=== PATIENT | female | born 1990 | race Two or more races ===

== ENCOUNTER 2023-12-17 09:52 | Inpatient (IN) | payer OTHER ==
[2023-12-17] MEDS ORDERED: ONDANSETRON 4 MG/2 ML VIAL IVP PRN ×2 (10:31→22:57)
[2023-12-17] MEDS ORDERED: METHYLERGONOVINE 0.2 MG/ML VIAL IM PRN (10:31)
[2023-12-17] MEDS ORDERED: TRANEXAMIC ACID IN NACL 1,000 MG/100 ML BAG IV PRN (10:31)
[2023-12-17] MEDS ORDERED: CARBOPROST TROMETHAMINE 250 MCG/ML VIAL IM PRN (10:31)
[2023-12-17] MEDS ORDERED: lidocaine 1% 20 ML MDV ID PRN (10:31)
[2023-12-17] MEDS ORDERED: OXYTOCIN/SODIUM CHLORIDE 500 ML IV PRN (10:31)
[2023-12-17] MEDS ORDERED: OXYTOCIN 10 UNIT/ML VIAL IM PRN (10:31)
[2023-12-17] MEDS ORDERED: miSOPROStoL 200 MCG TABLET BC PRN (10:31)
[2023-12-17] MEDS ORDERED: SODIUM CHLORIDE FLUSH 0.9% 10 ML SYRINGE IVP PRN (10:31)
--- NOTE | 2023-12-17 10:40 | HISTORY & PHYSICAL EXAMINATION ---
Admit History - : 3 Parity: 1 : 1 Care: positive: [facility] Risk/History: positive: None Complications This : positive: None Smoking Status: Never smoker - Mother's Labs Mother's Blood Type: positive: O Mother's RH: positive: Negative GBS: positive: Group B Step Negative Rubella Status: positive: Immune - HPI Diagnosis/Indication for NST: Other - NST Procedure NST reactive. 130's, moderate variability positive accelerations, no decelerations Contractions palpate mild occasionally. soft resting tone. Meds/Allgy - Home Medications Home Medications: Ambulatory Orders Medication Instructions Recorded Confirmed No Known Home Medications 03/14/15 03/14/15 - Allergies Allergies/Adverse Reactions: Allergies Allergy/AdvReac Type Severity Reaction Status Date / Time No Known Drug Allergies Allergy Verified 03/14/15 18:41 Review of Systems - Constitutional Constitutional: denies: Fatigue, Fever, Chills - Eyes Eyes: denies: Blurred vision, Spots in vision, Dipolpia - Cardiovascular Cariovascular: denies: Palpitations, Chest pain, Edema - Respiratory Respiratory: denies: Cough, Wheezing, SOB at rest - Gastrointestinal Gastrointestinal: denies: Constipation, Diarrhea, Nausea, Vomiting - Genitourinary Genitourinary: denies: Dysuria, Frequency - Integumentary Integumentary: denies: Rash, Pruritis - Neurological Neurological: denies: Headache - All Other Systems All Other Systems: reports: Reviewed and negative Physical - Abdominal Exam Contraction Frequency (min/apart): occasional Contraction Intensity: positive: Mild Uterine Resting Tone: positive: Soft - Monitoring Heart Rate Baseline: 130s Strip Review: positive: Category I - Presentation Presentation: positive: Vertex - Vaginal Exam Membranes: positive: Membranes intact Dilation (in cm): 1-2 Effacement (%): 50 Station: positive: -3 Cervical Position: positive: Posterior - Speculum Exam Speculum Exam Performed: positive: No Plan for Labor - Plan For Labor I expect patient to be DC'd or transferred within 96 hours.: Yes Plan for Labor: Connor redd a 33 yo @39+5 presents to L&D for scheduled elective induction of labor. Upon arrival cervix was 1-2cm/50%/-3, soft, posterior, vertex. FHR category I. Supported by and Mother. Will be admitted for active management. Desires early epidural for pain management. She has been a patient of [facility] for the duration of her which has remained uncomplicated. Dating criteria: LMP: 03/14/2023 TARIK by initial us: 12/20/2023 TARIK by LMP: 12/19/2023 Serial exams agree. OB history: G1: TAB G2: 07/09/2021 NSVB 40 weeks, epidural, 6# 8oz female G3: current Allergies: NKDA Medical History: No significant history Surgical: Leep 2017, Liposuction 2019, airsculpt 2021 Social History: Never smoker, no EDOH, IVDU Course: O negative, antibody negative, rubella immune, hep B negative, GBS negative. Rhogam given 10/24/2023, Tdap 09/26/2020. care initiated @ 6+5 weeks gestation. 22 week anatomy scan: Estimated weight and percentile: 515 g, 29th percentile Normal anatomy. SLIUP with appropriate growth.] PE: Heart regular rate and rhythm lungs CTAB. Abdomen gravid, soft, non-tender. EFW: 3300g. Bilateral LE, trace edema. Mood good. Assessment: #1. 33 yo @33+5 weeks gestation by LMP consistent with 6 week us #2. Elective IOL #3. FHR category I #4. GBS negative #5. RH negative. Plan: #1. [facility] #2. 50mcg BC misoprostol q 4 hours for preinduction cervical ripening. #3. Continuous monitoring. #4. Jacuzzi tub prn. Nitrous oxide prn. #5. Epidural per maternal request #6. Anticipate .
[2023-12-17 11:16] LABS: BASOPHILS % (AUTO) 0.5 %; EOSINOPHILS # (AUTO) 0.1 10^3/uL (0.0-0.7); EOSINOPHILS % (AUTO) 0.7 %; HCT - HEMATOCRIT 34.8 % (37.0-47.0); HGB - HEMOGLOBIN 11.4 g/dL (12.0-16.0); LYMPHOCYTES # (AUTO) 2.6 10^3/uL (1.5-3.5); LYMPHOCYTES % (AUTO) 33.9 %; MEAN CORPUSCULAR HEMOGLOBIN 28.2 pg (27.0-31.0); MEAN CORPUSCULAR HGB CONC 32.8 g/dL (32.0-36.0); MEAN CORPUSCULAR VOLUME 86.1 fL (81.0-99.0); MEAN PLATELET VOLUME 8.8 fL (7.9-10.8); MONOCYTES # (AUTO) 0.7 10^3/uL (0.0-1.0); MONOCYTES % (AUTO) 8.6 %; NEUTROPHILS # (AUTO) 4.3 10^3/uL (1.5-6.6); PLT - PLATELET COUNT 283 10^3/uL (130-450); RED BLOOD COUNT 4.04 10^6/uL (4.20-5.40); RED CELL DISTRIBUTION WIDTH 13.2 % (12.0-15.0); WHITE BLOOD COUNT 7.6 x10^3/uL (4.8-10.8)
[2023-12-17] MEDS: miSOPROStoL 100 MCG TABLET BC SCH (11:58)
[2023-12-17] MEDS ORDERED: SODIUM CHLORIDE FLUSH 0.9% 10 ML SYRINGE IVP SCH (17:00)
[2023-12-17] MEDS ORDERED: TERBUTALINE 1 MG/ML VIAL SUBQ ONE (18:41)
--- NOTE | 2023-12-17 21:06 | PROVIDER PROGRESS NOTE ---
Labor Progress Note - Uterine Monitoring Uterine Monitoring Mode: positive: External toco Contraction Frequency (min/apart): intermittent Contraction Intensity: positive: Mild Uterine Resting Tone: positive: Soft - Monitoring Monitor Mode: positive: External ultrasound Heart Rate Baseline: 135 Heart Rate Variability: positive: Moderate (6-25 bmp) Accelerations: positive: Present, 15x15 Decelerations: positive: None Strip Review: positive: Category I - Vaginal Exam Dilation (in cm): 2 Effacement (%): 80 Station: -3 Cervical Position: Posterior - Labor Progress Note Labor Progress Note/Additional Text: S: Right side lying. Tearful thinking for daughter at home. Using nitrous for pain management. Increasing discomfort with contractions. Close to desiring epidural for pain management. O: FHR baseline 130s, moderate variability, + accels, no decels. Brief period of variable decelerations that resolved with fluid bolus and position changes. Overall reassuring with moderate variability maintained throughout. Contractions palpate mild intermittently with soft resting tone. Following 2nd dosage of misoprostol she experienced a period of consistent contractions but has not had consistent contractions since that time per tocometry. SVE 2/80/-3, posterior. Vertex. Membranes intact. S/p 2 doses 50mcg BC misoprostol A: 33yo @ 39.5wks gestation by LMP c/w 6wk U/S Elective IOL FHR Category I GBS neg Rh Neg P: Initiate pitocin now for induction of labor to initiate at 2mU/mL with titration per protocol. Continuous monitoring. Epidural per maternal request. Encouraged rotation in bed on peanut ball. Anticipate .
[2023-12-17] MEDS: OXYTOCIN/SODIUM CHLORIDE 500 ML IV SCH (21:43)
[2023-12-17] MEDS ORDERED: ROPIVACAINE 0.2% 200 MG/100 ML BAG EP ONE (22:07)
[2023-12-17] MEDS ORDERED: LIDOCAINE 2%-EPI 1:100000 20 ML MDV ONE (22:08)
[2023-12-17] MEDS: LACTATED RINGERS 1,000 ML IV SCH (22:43)
[2023-12-17] MEDS ORDERED: ROPIVACAINE 0.2% 200 MG/100 ML BAG EP PRN (22:57)
[2023-12-17] MEDS ORDERED: NALBUPHINE 10 MG/ML AMP IVP PRN (22:57)
[2023-12-17] MEDS ORDERED: NALOXONE 0.4 MG/ML VIAL IVP PRN (22:57)
[2023-12-17] MEDS ORDERED: METOCLOPRAMIDE 10 MG/2 ML VIAL IVP PRN (22:57)
[2023-12-17] MEDS ORDERED: diphenhydrAMINE INJ 50 MG/ML VIAL IVP PRN (22:57)
--- NOTE | 2023-12-17 23:00 | ANESTHESIA ---
Pre-Anesthesia VS, & Labs - Diagnosis term labor, labor pain - Procedure epidural for Vital Signs: Temp Pulse Resp BP Pulse Ox O2 Flow Rate 36.6 C 99 17 118/87 H 12/17/23 10:25 12/17/23 10:25 12/17/23 10:25 12/17/23 10:25 Height: 5 ft 3 in Weight (kg): 92.986 kg Body Mass Index: 36.3 BMI Classification: Obese - NPO Last Fluid Intake: t/o day Last Food Intake: dinner - Is Patient ?: Yes - Lab Results Current Lab Results: Laboratory Tests 12/17/23 12:53: Blood Type Recheck O NEGATIVE 12/17/23 11:00: Blood Type O NEGATIVE, Antibody Screen NEGATIVE 12/17/23 11:00: WBC 7.6, RBC 4.04 L, Hgb 11.4 L, Hct 34.8 L, MCV 86.1, MCH 28.2, MCHC 32.8, RDW 13.2, Plt Count 283, MPV 8.8, Neut # (Auto) 4.3, Lymph # (Auto) 2.6, [place] # (Auto) 0.7, Eos # (Auto) 0.1, Baso # (Auto) 0.0, Absolute Nucleated RBC 0.00, Nucleated RBC % 0.0 Lab results reviewed: Yes Fish Bones: 12/17/23 11:00 Home Medications and Allergies Active Medications Carboprost Tromethamine (Carboprost Tromethamine 250 Mcg/Ml Vial) 250 mcg IM Q15M PRN PRN Reason: Step 4: Hemorrhage protocol Diphenhydramine HCl (Diphenhydramine Inj 50 Mg/Ml Vial) 12.5 - 25 mg IVP Q6HR PRN PRN Reason: ITCHING Ephedrine Sulfate (Ephedrine 50 Mg/Ml Vial) 5 mg IVP Q5M PRN PRN Reason: For SBP<100;give until SBP>100 Oxytocin/Sodium Chloride (Pitocin/Sodium Chloride) 500 mls @ 999 mls/hr IV PRN PRN; Protocol PRN Reason: POST- HEMORR PREVENTION Stop: 12/22/23 10:33 Tranexamic Acid (Tranexamic 1,000 Mg/100ml-Nacl) 1,000 mg in 100 mls @ 600 mls/hr IV .ONCE PRN PRN Reason: EBL >1200mL and within 3hr Stop: 12/22/23 10:33 Lactated Ringer's (Lr) 1,000 mls @ 100 mls/hr IV .Q10H [facility] Last Admin: 12/17/23 22:43 Dose: 125 mls/hr Oxytocin/Sodium Chloride (Pitocin/Sodium Chloride) 500 mls @ 2 mls/hr IV TITR MERA; Protocol Last Titration: 12/17/23 22:41 Dose: 4 milliunit/min, 4 mls/hr Ropivacaine (Naropin 0.2%) 200 mg in 100 mls @ 0 mls/hr EP PRN PRN; Protocol PRN Reason: PAIN Lidocaine HCl (Lidocaine 1% 20 Ml Mdv) 20 ml ID .ONCE PRN PRN Reason: PERINEAL REPAIR Stop: 12/22/23 10:33 Methylergonovine Maleate (Methylergonovine 0.2 Mg/Ml Vial) 0.2 mg IM .ONCE PRN PRN Reason: Step 2: Hemorrhage protocol Stop: 12/22/23 10:33 Metoclopramide HCl (Metoclopramide 10 Mg/2 Ml Vial) 10 mg IVP Q6HR PRN PRN Reason: Nausea / Vomiting Misoprostol (Misoprostol 200 Mcg Tablet) 800 mcg BC .ONCE PRN PRN Reason: Step 3: Hemorrhage protocol Stop: 12/22/23 10:33 Misoprostol (Misoprostol 100 Mcg Tablet) 50 mcg BC Q4HR [facility] Last Admin: 12/17/23 16:29 Dose: 50 mcg Nalbuphine HCl (Nalbuphine 10 Mg/Ml Amp) 2.5 - 5 mg IVP Q4H PRN PRN Reason: ITCHING Naloxone HCl (Naloxone 0.4 Mg/Ml Vial) 0.1 mg IVP Q2M PRN PRN Reason: RR<8 Ondansetron HCl (Ondansetron 4 Mg/2 Ml Vial) 4 mg IVP Q4HR PRN PRN Reason: Nausea / Vomiting Ondansetron HCl (Ondansetron 4 Mg/2 Ml Vial) 4 mg IVP Q6HR PRN PRN Reason: Nausea / Vomiting Oxytocin (Oxytocin 10 Unit/Ml Vial) 10 unit IM .ONCE PRN PRN Reason: Step one: If no IV access Stop: 12/22/23 10:33 Sodium Chloride (Sodium Chloride Flush 0.9% 10 Ml Syringe) 10 ml IVP 0100,0900,1700 MERA Sodium Chloride (Sodium Chloride Flush 0.9% 10 Ml Syringe) 10 ml IVP PRN PRN PRN Reason: NEEDED PER PROVIDER ORDERS No Known Home Medications 03/14/15 Allergies/Adverse Reactions: Allergies Allergy/AdvReac Type Severity Reaction Status Date / Time No Known Drug Allergies Allergy Verified 03/14/15 18:41 Anes History & Medical History - Anesthetic History Anesthesia Complications: reports: No previous complications Family history of Anesthesia Complications: Denies Family history of Malignant Hyperthermia: Denies - Medical History Smoking Status: Never smoker - Obstetrical History : 3 Parity: 1 Events: reports: None Complications: reports: None Exam General: Alert, Oriented x3, Cooperative, Mild distress Dental: WNL Mouth Openin Fingerbreadth Neck Mobility: Normal Mallampati classification: II Thyromental Distance: 4-6 cm Respiratory: Lungs clear, Normal breath sounds, No respiratory distress Cardiovascular: Regular rate Neurological: Normal speech Mental/Cognitive Status: Alert/Oriented X3, Normal for patient Cognitive Status: Within normal limits Plan Anesthesia Type: Epidural Consent for Procedure(s) Verified and Reviewed: Yes Code Status: Attempt Resuscitation ASA classification: 2-Mild systemic disease Is this case an emergency?: No
[2023-12-17] MEDS ORDERED: ePHEDrine 50 MG/ML VIAL IVP ONE (23:04)
[2023-12-18] MEDS: ePHEDrine 50 MG/ML VIAL IVP PRN (00:15)
--- NOTE | 2023-12-18 01:38 | CONSULTATION NOTE ---
Consultation Report: Epidural rate changed from intermittent 10ccq 50 mins to continuous at 8cc/hr at RN request feeling patient getting too much. Ephedrine 10mg given at 0015. No subsequent doses. BP 115 systolic on arrival at 0120. Patient states she is comfortable.
[2023-12-18] MEDS ORDERED: TRANEXAMIC ACID IN NACL 0 MG/0 ML BAG IV ONE (03:48)
[2023-12-18] MEDS ORDERED: miSOPROStoL 200 MCG TABLET ONE (03:48)
--- NOTE | 2023-12-18 05:17 | DELIVERY NOTE ---
Delivery Note - Labor Labor: positive: Induced by oxytocin - Infant Delivery Method Delivery Method: positive: Spontaneous vaginal delivery - Cervical Ripening Method Cervical Ripening Method: positive: Misoprostil - Presentation Presentation: positive: Vertex, Other - Nuchal Cord Nuchal Cord: positive: None - Amniotic Fluid Description Amniotic Fluid Description: positive: Clear - Episiotomy Type Episiotomy Type: positive: None - Laceration Laceration: positive: 1st degree, Perineal - Suture Suture Type: positive: Vicryl Suture Size: positive: 3-0 - Delivery Outcome Delivery Outcome: positive: Livebirth - [place]: positive: Placed in direct skin contact with mother, Bulb syringe, Stimulated, Warmed, [place] used [place] sex: positive: Female - Cord Cord: positive: 3 vessels - Placenta Placenta: positive: Intact, Spontaneous - Estimated Blood Loss Estimated Blood Loss (in cc): 375 - Post Delivery Events Post Delivery Events: positive: No post delivery events - Delivery Comments (Free Text/Narrative) Delivery Comments (Free Text/Narrative): This 33 yo, @ 39+5 weeks gestation by LMP confirmed by first trimester ultrasound, presented for IOL. Cervix was 2/50/-3, vertex, GBS negative. FHR pattern demonstrated 135 baseline in a category I tracing. Normal labor course. Epidural placed upon maternal request. AROM @ 0405. : Normal spontaneous vaginal delivery of a viable female , OP on 12/18/2023 @ 0435, no nuchal cord. The was placed on maternal abdomen, stimulated, dried and placed skin to skin. Apgars 8 at 1 min and 9 at 5 minutes. Pitocin administered via IV for homeostasis. The umbilical cord was allowed to stop pulsating at which time it was doubly clamped by delivering provider and cut by FOB. 3 VC. Cord blood was obtained. Fundal massage and gentle cord traction applied for active management of the third stage, placenta delivered spontaneously and intact @ 0440. EBL 375. Fourth Stage: Uterine fundus firm and there is no excessive bleeding. The perineum, vagina and cervix were inspected. 1st degree perineal laceration repaired with epidural anesthesia, 3-) rapide, repaired in standard fashion under sterile conditions. Vaginal and rectal examination following the repair was done. Tissues well approximated. Skin to skin contact initiated. Family bonding well. Both mother and baby are in stable condition. 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
[2023-12-18] MEDS: IBUPROFEN 800 MG TABLET PO SCH (08:19)
[2023-12-18] MEDS: ACETAMINOPHEN 500 MG TABLET PO SCH (08:20)
[2023-12-18] MEDS: WITCH HAZEL/GLYCERIN 1 PAD TOP PRN (08:22)
[2023-12-18] MEDS: HYDROCORTISONE 1% CREAM 28 GM TUBE PR PRN (08:22)
[2023-12-18] MEDS: oxyCODONE 5 MG TABLET PO PRN (15:22)
[2023-12-18] MEDS: RHO(D) IMMUNE GLOBULIN 300 MCG SYRINGE IVP ONE (15:47)
[2023-12-19 00:20] VITALS: O2SAT 98
--- NOTE | 2023-12-19 04:53 | Discharge Plan ---
Discharge Plan Problem Reviewed?: Yes Disposition: Home, Self Care Condition: Good Diet: Regular Activity Restrictions: Activity as Tolerated Shower Restrictions: No Driving Restrictions: No Weight Bearing: Full Weight Instruction Topics: Vaginal After No Smoking: If you smoke, Please STOP! Call for help. Follow-up with: Akanksha Chávez CNM, [place] [Provider Admit Priv/Credential] - 1 Week (12/24/2023 @1300)
--- NOTE | 2023-12-19 05:15 | DISCHARGE SUMMARY ---
Discharge Summary Admit Date: 12/17/23 Discharge Date: 12/19/23 Discharging Provider: Akanksha Chávez Condition at Discharge: Good Discharge Disposition: 01 Home, Self Care - HOSPITAL COURSE Hospital Course: Diagnosis on Admission: #1. 33 yo @39+5 weeks gestation by LMP consistent with 6 week us #2. Elective IOL #3. FHR category I #4. GBS negative #5. RH negative. Diagnosis on discharge #1. 33yo ppd #1 s/p spontaneous vaginal delivery on 12/18/2023 #2. Normal recovery #3. Rhogam given 12/18/2023 Brief history: [facility] who present on 12/17/2023 for elective IOL. upon arrival she was 2/50/-3, misoprostol 50mcg misoprostol for preinduction cervical ripening, followed by pitocin for IOL for a maximum infusion rate of 12mU/min, epidural placed per maternal request. Progressed to spontaneously delivery viable female on 12/18/2023 @ 0435 ap gars 03/19 at 1 and 5 min respectively, EBL 375ml. 1st degree laceration repaired in standard fashion under standard conditions. She has been doing well in her course. She is ambulating and tolerating a regular diet. She is urinating without difficulty and her lochia is normal. Her pain is well controlled with oral medications. She received Rhogam on 12/18/2023. SHe will be discharged home today on day #1 with prescriptions for cabergoline. 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 She intends to follow up with [facility] in 1 week for routine visit. SHe has been given precautions to call if she has any worsening fevers, chills, abdominal pain, increased bleeding, or foul smelling vaginal lochia. Physical Exam: Heart: RRR Lungs: CTAB Abdomen: Soft/nontender, FF@U Lochia: light, rubra LE: Bilateral LE trace edema TOMÁS Hanley - ALLERGIES Allergies/Adverse Reactions: Allergies Allergy/AdvReac Type Severity Reaction Status Date / Time No Known Drug Allergies Allergy Verified 03/14/15 18:41 - MEDICATIONS Home Medications: Ambulatory Orders Medication Instructions Recorded Confirmed Ibuprofen [Motrin] 800 mg PO Q6H tab 12/19/23 [place]/Glycerin [Tucks] 1 pad TOP QID PRN each 12/19/23 - LABS Result Diagrams: 12/17/23 11:00
[2023-12-19 09:17] VITALS: BP 110/74
--- NOTE | 2023-12-19 15:42 | Labor Flowsheet ---
Labor Flowsheet Datetime Report Generated by CPN: 12/19/2023 15:42 Datetime: 12/19/2023 07:54 Pulse: 77 SpO2 (%): 98 Datetime: 12/19/2023 07:53 VITAL SIGNS NBP Sys/Corrine/Mean (mmHg): 110 : 74 : 81 Datetime: 12/18/2023 06:35 Stage of : Recovery Respirations: 18 PAIN Pain Scale: 0 Datetime: 12/18/2023 05:44 Anesthesia Level Check: T10- Umbilicus Datetime: 12/18/2023 05:00 Anesthesia Comments: no difficulty breathing, remains in high fowlers Datetime: 12/18/2023 04:45 Membranes Ruptured Date/Time: 12/18/2023 04:03 Datetime: 12/18/2023 04:34 LaborFlag: Labor Datetime: 12/18/2023 04:30 UTERINE ACTIVITY Monitor Mode: Palpation Frequency (min): 2 Duration (sec): 60 FHR Baseline Rate : 130 Variability: Moderate 6-25 bpm Accelerations: 15X15 Datetime: 12/18/2023 04:25 Decelerations: Variable Datetime: 12/18/2023 04:20 Patient Care Comments: john dc'd Pushing Progress: Descent with Pushing Datetime: 12/18/2023 04:10 STAGE 2 Pushing: Coached on Pushing Pushing Position: Pushing with Contractions Preparation for Delivery: Setup for Delivery Communication Comments: pushing Datetime: 12/18/2023 04:03 Membranes Rupture Method: Artificial Amniotic Fluid Color: Clear Amniotic Fluid Amount: Small Amniotic Fluid Odor: Normal Datetime: 12/18/2023 04:01 COMMUNICATION Communication: Provider at Bedside Datetime: 12/18/2023 03:46 Quality: Strong Pattern: Normal: <= 5 Contractions in 10 Minutes Resting Tone (Palpate): Relaxed Pitocin Checklist: At Least 1 Acceleration of 15 bpm x 15 Seconds in 30 Minutes or Adequate Variabi lity; No More than 1 Late Deceleration Occurred in Past 30 Minutes; No More than 2 Variable Decelerat ions > 60 Seconds in Duration and decreasing >60 bpm in 30 minutes; No More than 5 Uterine Contractio ns in 10 Minutes for any 20 Minute Interval; Uterus Palpates Soft between Contractions Datetime: 12/18/2023 03:40 VAGINAL EXAM Dilatation (cm): 10.0 Station: 0 Exam by: MK MEDICATIONS Pitocin (milliunits): Decreased to @ Medication Comments: 2 Datetime: 12/18/2023 03:25 Temperature (C): 36.9 Monitor Interventions for UA: [place] Adjusted ASSESSMENT A Monitor Mode: External US FHR Baseline Changes: No Baseline Change Datetime: 12/18/2023 00:53 I/O Interventions: Clear Liquids Given Datetime: 12/18/2023 00:52 Patient Position/Activity: Right Lateral Datetime: 12/18/2023 00:42 Category: Category II MATERNAL ASSESSMENT Level of Consciousness: Drowsy Nausea/Vomiting: Denies Datetime: 12/18/2023 00:31 Anesthesia Interventions Other: Ephedrine Datetime: 12/17/2023 23:30 PATIENT CARE IV/Blood Work: IV Bolus Given ml @ Datetime: 12/17/2023 23:04 Actions for Decelerations: Pitocin Off; IV Bolus; Blood Pressure; Provider Notified Datetime: 12/17/2023 22:41 Epidural Procedure Other: Pump Started Datetime: 12/17/2023 22:36 Epidural Procedure: Loading Dose Datetime: 12/17/2023 22:18 Epidural Positioning: Sitting Datetime: 12/17/2023 22:12 Anesthesia Interview: E Datetime: 12/17/2023 21:50 ANESTHESIA Anesthesia Plans: Epidural Datetime: 12/17/2023 21:40 TEACHING Instructional Method: Verbal; Patient Instructed; Family/Support Person Instructed Plan of Care: Plan of Care Discussed Labor/Induction: Cervical Ripening; Induction Pain Management: Epidural Medications: Pitocin Datetime: 12/17/2023 20:10 Comments: fetus very active Datetime: 12/17/2023 20:00 DTR's/Clonus: DTRs 1+ Headache: Denies RUQ Epigastric Pain: Denies Datetime: 12/17/2023 19:51 Effacement (%): 80 Vaginal Bleeding: None Cervix, Consistency: Soft Cervix, Position: Posterior Datetime: 12/17/2023 19:42 Pain Presence: Intermittent Pain Type: Contraction Comfort Measures: Breathing/Relaxation; Coaching Datetime: 12/17/2023 19:39 Teaching Comments: nitrous teaching Datetime: 12/17/2023 19:00 Oxygen Method: Room Air Datetime: 12/17/2023 16:33 Temperature Route: Oral Datetime: 12/17/2023 11:58 Cervical Ripening Agents: Other Cervical Ripening Agents Other: miso @ 1158
== END 2023-12-19 12:50 | disposition home or self-care (01) | DRG 807 ==
LOC: WFO 09:52 → FBP 10:22 → WFO 10:30 → FBP 10:31
PROVIDERS: ADMIT Nurse Practitioner Obstetrics & Gynecology; ATTEND Nurse Practitioner Obstetrics & Gynecology
PROC: 3E0DXGC Introduction of Other Therapeutic Substance into Mouth and Pharynx, External Approach (ICD-10-PCS; 2023-12-17)
PROC: 3E033VJ Introduction of Other Hormone into Peripheral Vein, Percutaneous Approach (ICD-10-PCS; 2023-12-17)
PROC: 10E0XZZ Delivery of Products of Conception, External Approach (ICD-10-PCS; principal; 2023-12-18)
PROC: 0HQ9XZZ Repair Perineum Skin, External Approach (ICD-10-PCS; 2023-12-18)
DX: O70.0 First degree perineal laceration during delivery (principal); Z37.0 Single live birth; Z3A.39 39 weeks gestation of pregnancy
CPT/HCPCS: 36415; 59409; 83033; 85025; 86850; 86900; 86901; A9270; J7120